=== PATIENT | female | born 1995 | race Two or more races ===

== ENCOUNTER 2023-02-07 22:03 | Emergency (ER) | payer SELFPAY ==
[~2023-02-07] VITALS: Ht 170.2 cm; Wt 85.0 kg
[2023-02-07 23:00] LABS: Basophils # (auto) 0.1 10 ^3/uL (0-0.2); Eosinophils # (auto) 0.2 10 ^3/uL (0-0.8); Eosinophils % (auto) 2.2 % (0.0-7.0); Hematocrit 40.8 % (36.0-46.0); Hemoglobin 14.6 g/dL (12.2-16.2); Lymphocytes # (auto) 4.2 10 ^3/uL (0.4-5.4); Mean Corpuscular Hemoglobin 32.1 pg (28.0-32.0); Mean Corpuscular Hgb Conc. 35.9 g/dL (32.0-36.0); Mean Corpuscular Volume 89.6 fL (80.0-100.0); Monocytes # (auto) 0.4 10 ^3/uL (0-1.3); Monocytes % (auto) 3.6 % (0.0-12.0); Neutrophils # (auto) 6.4 10 ^3/uL (1.6-8.6); Neutrophils % (auto) 56.2 % (37.0-80.0); Nucleated Red Blood Cells % 0.7 %; Red Blood Cells 4.55 10^6/uL (4.0-5.20); Red Cell Distribution Width 12.7 % (11.8-14.3); White Blood Cell 11.4 10^3/uL (4.4-10.8)
[2023-02-07 23:22] LABS: Albumin 3.4 g/dL (3.4-5.0); Bilirubin, Total 0.6 mg/dL (0.2-1.0)
[2023-02-07 23:31] LABS: Potassium 4.2 mmol/L (3.5-5.1)
[2023-02-08 00:14] LABS: BUN/Creatinine Ratio 17.6 (10.0-20.0)
[2023-02-08 00:19] LABS: Total Protein 8.5 g/dL (6.4-8.2)
[2023-02-08 06:28] VITALS: BP 100/56
[2023-02-08] MEDS ORDERED: AZIT250T9 PO (06:35)
== END 2023-02-08 07:14 | disposition home or self-care (01) ==
LOC: ER 22:03 → EDBD 22:03 → ER 02-08 07:14
DX: J40 Bronchitis, not specified as acute or chronic (principal); R51.9 Headache, unspecified; E11.9 Type 2 diabetes mellitus without complications
CPT/HCPCS: 36415; 70450; 71045; 80053; 84484; 85025

== ENCOUNTER 2024-03-11 22:43 | Emergency (ER) | payer SELFPAY ==
[~2024-03-11] VITALS: Ht 167.6 cm; Wt 76.7 kg
[~2024-03-11 22:43] MED LIST: AZIT-43 PO
[2024-03-11 23:11] VITALS: BP 138/95; PULSE 79; RESP 18; O2SAT 98
[2024-03-11 23:35] LABS: Urine Bacteria None Seen /hpf (None Seen)
[2024-03-12 00:05] LABS: Urine Blood 3+ /uL (Negative); Urine Clarity Ex.Turbid (Clear); Urine Color Light-Red (Yellow); Urine Mucus FEW (None Seen); Urine Protein, UAD 1+ (Negative); Urine Specific Gravity 1.028 (1.001-1.035); Urine Urobilinogen Normal (Negative); Urine WBC 51 /hpf (0 - 5); Urine WBC Clumps PRESENT /hpf (None Seen); Urine pH 6.5 (5.0-9.0)
[2024-03-12] MEDS ORDERED: CEPH500C PO (01:00)
== END 2024-03-12 04:49 | disposition left against medical advice (07) ==
LOC: ER 22:43
DX: L02.511 Cutaneous abscess of right hand (principal); N39.0 Urinary tract infection, site not specified; E11.9 Type 2 diabetes mellitus without complications
CPT/HCPCS: 81001; 82962